=== PATIENT | male | born 2000 | race Caucasian/White ===

== ENCOUNTER 2023-07-02 17:13 | Emergency (ER) | payer OTHER, SELFPAY ==
--- NOTE | 2023-07-02 17:14 | ED.DENTAL ---
HPI - Dental/Oral General Chief complaint: Dental/Oral Stated complaint: Tooth pain Time Seen by Provider: 07/02/23 17:14 Source: patient Mode of arrival: ambulatory Limitations: no limitations History of Present Illness HPI Narrative: Patient is a 22-year-old male with right facial pain due to dental pain in the upper and lower back jaw. This has been going on for the past week. He was supposed to go to a dentist but has a new appointment coming up at the end of this month. MD Complaint: tooth pain Location: Tooth # ( Tooth 1 and 32) Onset (ago): week(s) (1) Duration: constant Severity: severe Severity scale (1-10): 8 Relieving factors: other ( drinking water) Exacerbating factors: chewing, cold and heat Context: history of dental caries and poor dental care Associated symptoms: gum swelling Treatment prior to arrival: oral analgesic Related Data Allergies Allergy/AdvReac Type Severity Reaction Status Date / Time No Known Allergies Allergy Verified 07/02/23 17:20 Review of Systems Review of Systems: All systems reviewed & are unremarkable except as noted in HPI and below Constitutional: Constitutional: Reports no additional constitutional complaints Eyes: Eyes: Reports no additional eye complaints ENT: Reports system reviewed and no additional complaints, except as documented Cardiovascular: Cardiovascular: Reports no additional cardiovascular complaints Respiratory: Respiratory: Reports no additional respiratory complaints Gastrointestinal: Gastrointestinal: Reports no additional gastrointestinal complaints Genitourinary: Genitourinary: Reports no additional male genitourinary complaints Musculoskeletal: Musculoskeletal: Reports no additional musculoskeletal complaints Integumentary/Breasts: Skin/Breast: Reports system reviewed and no additional complaints, except as docu Neurologic: Reports system reviewed and no additional complaints, except as documented Psychiatric: Psychiatric: Reports no additional psychiatric complaints Endocrine: Endocrine: Reports no additional endocrine complaints Hematologic/Lymphatic: Hematologic/Lymphatic: Reports no additional hematologic/lymphatic complaints Allergic/Immunologic: Allergic/Immunologic: Reports no additional allergic/immunologic complaints Exam Const: General: healthy appearing Nutritional Appearance: well nourished Orientation/consciousness: patient oriented x3 HENMT: Head: normal to inspection Ears: external ears normal Face/Nose/Sinus: Normal external nose present Other: tooth 1 and 32 have decay; specifically tooth 1 has the most decay and fracture; no abscesses seen; gingival hyperplasia on the number 32 Eyes: Conjunctivae: conjunctivae normal Pupils: Equal, round and reactive pupils present EOM: EOMs intact bilaterally Neck: Neck: normal visual inspection Chest: Chest palpation & inspection: normal inspection of the chest Resp: Effort & Inspection: normal respiratory effort and not labored Auscultation: clear to auscultation bilaterally and no crackles Cardio: Rate: regular rate Rhythm: regular rhythm Heart sounds: no murmurs GI: Inspection: non-distended GI Palp: Yes Soft to palpation and No Tenderness to palpation present (GI) Auscultation: normal bowel sounds : General: Yes bladder normal to palpation Back/Spine/Pelvis: Back: no CVA tenderness Skin: General skin exam: normal color Rashes: no rashes Wounds: no wounds Neuro: General: patient oriented x3 Cranial nerves: Yes Nystagmus not present Speech: normal speech Extrem: General: normal to inspection Psych: Mental Status: mental status grossly normal Affect: normal affect Attitude: cooperative Course Vital Signs Vital signs: Vital Signs Temperature 36.6 C 07/02/23 17:15 Pulse Rate 81 07/02/23 17:15 Respiratory Rate 20 07/02/23 17:15 Blood Pressure 152/86 H 07/02/23 17:15 Pulse Oximetry 97 07/02/23 17:15 Oxygen Delivery Room Air
[2023-07-02 17:15] VITALS: BP 152/86; PULSE 81; RESP 20; TEMP 36.6; O2SAT 97
[2023-07-02] MEDS: AMOXICILLIN 500 MG CAPSULE 1000 MG PO (17:33)
[2023-07-02] MEDS: KETOROLAC (*BKC) 60 MG/2 ML VIAL IM (17:34)
[2023-07-02] MEDS: traMADol HCL (*CRX) 50 MG TABLET PO (17:34)
== END 2023-07-02 17:52 | disposition home or self-care (01) ==
PROVIDERS: Emergency Provider Emergency Medicine; PCP Family Medicine
DX: R68.84 Jaw pain (principal)
CPT/HCPCS: 96372; 99283; A9270; J1885

== ENCOUNTER 2024-02-03 23:08 | Emergency (ER) | payer OTHER, SELFPAY ==
--- NOTE | ~2024-02-03 | CT_ITS ---
EXAMINATION: CT abdomen pelvis wo con DATE: 02/03/2024 23:30 INDICATION: Left lower quadrant abdominal pain. Kidney stone. TECHNIQUE: Computed tomography (CT) of the abdomen and pelvis was performed without intravenous contr ast. Automated exposure control and iterative reconstruction technique were employed. The dose-length product was 740.06 mGy-cm. COMPARISON: None. FINDINGS: The visualized portions of the lung bases are clear without pneumonia or pleural effusion. The heart size is normal. No pericardial effusion. The liver, gallbladder, spleen, pancreas, adrenal glands, and right kidney are normal. There is mild left hydronephrosis and proximal hydroureter. Ther e is a 4 mm stone in the proximal left ureter. There are no dilated loops of bowel. The appendix is n ormal. There are no pathologically enlarged lymph nodes. There is no free intraperitoneal fluid. Ther e is thoracolumbar dextrocurvature. IMPRESSION: 1. 4 mm stone in proximal left ureter with mild left hydronephrosis and proximal hydroureter. Reviewed, dictated and finalized at location E. IMPRESSION: 1. 4 mm stone in proximal left ureter with mild left hydronephrosis and proxima l hydroureter.
[2024-02-03 23:14] VITALS: BP 146/87; PULSE 81; RESP 20; TEMP 36.6; O2SAT 98
--- NOTE | 2024-02-03 23:14 | ED.GENADULT ---
HPI - General Adult General Chief complaint: Urogenital-Male Stated complaint: Testicular Problem Time Seen by Provider: 02/03/24 23:14 Source: patient and family Mode of arrival: ambulatory History of Present Illness HPI narrative: 23 years old white male came to the emergency room with his mom by private car from home complaining of sudden onset of left testicular pain left lower quadrant pain started within 1 hour prior to arrival to the emergency room associated with nausea and vomiting. Patient reported the pain wake him up from sleep patient reports possible pain at the left flank area. Pain is sharp, stabbing, steady. No aggravating or relieving factors. Related Data Home Medications Medication Instructions Recorded Confirmed No Home Medications 02/03/24 02/04/24 Allergies Allergy/AdvReac Type Severity Reaction Status Date / Time No Known Allergies Allergy Verified 02/04/24 05:05 Review of Systems Review of Systems: All systems reviewed & are unremarkable except as noted in HPI and below PMFSH Family History Family History (Updated 02/04/24 @ 05:11 by Mark Martínez RN) Grandparent Hypertension Heart disease Diabetes mellitus Social History Social History Smoking status: Never smoker Alcohol intake: never Substance use: current Substance use type: marijuana Do You Feel Safe in your Home?: Yes Lack of Transportation: No Lack of Food: Never True Current Housing: I Have Housing Concerned About Future Housing: No Difficulty Paying Gas/Electric Bills: No Difficulty Paying for Meds: No Currently Unemployed: No Education: High School Diploma/GED Difficulty w/ Childcare or Family Care: No Spiritual care concerns: No Exam Narrative: General appearance: Well-developed, well-nourished Looks in pain, restless Skin: Normal color Head: Normocephalic, nontraumatic Eyes: Clear conjunctiva ENT: Oropharynx normal, ears normal, nose normal Neck: Supple, nontender Chest and respiratory: Airway patent, no respiratory distress, no accessory muscle use Heart: Regular rate/rhythm Abdomen: Soft, slight tenderness left lower quadrant,, no organomegaly, quiet bowel sounds. Scrotal exam showed slight tenderness at the left testicle, no mass, no swelling, no skin discoloration, Vascular: Normal peripheral pulses, normal capillary refill. Musculoskeletal: Normal range of motion, nontender back Neurologic: Alert and oriented ?3, [employer] is normal as tested, no gross motor deficit Course Consultations Consultation #1: dr lester, urologist at [facility] who accepted patient transfer Date: 02/04/24 Time: 03:02 Consultation #2: dr joseph, hospitalist at [facility] who accepted patient transfer Date: 02/04/24 Time: 03:03 Vital Signs Vital signs: Vital Signs Temperature 36.6 C 02/03/24 23:14 Pulse Rate 81 02/03/24 23:14 Respiratory Rate 20 02/03/24 23:14 Blood Pressure 146/87 H 02/03/24 23:14 Pulse Oximetry 98 02/03/24 23:14 Oxygen Delivery Room Air 02/03/24 23:14 Temperature 36.6 C 02/04/24 04:11 Pulse Rate 75 02/04/24 04:11 Respiratory Rate 18 02/04/24 04:11 Blood Pressure 122/72 02/04/24 04:11 Pulse Oximetry 98 02/04/24 04:11 Oxygen Delivery Room Air 02/04/24 04:11 Medical Decision Making Vital Signs Vital Signs: Vital Signs Temperature 36.6 C 02/03/24 23:14 Pulse Rate 81 02/03/24 23:14 Respiratory Rate 20 02/03/24 23:14 Blood Pressure 146/87 H 02/03/24 23:14 Pulse Oximetry 98 02/03/24 23:14 Oxygen Delivery Room Air 02/03/24 23:14 Temperatu
[2024-02-03 23:22] LABS: Basophils Absolute Auto 0.06 K/mm3 (0.00-0.10); Basophils Percent Auto 0.8 % (0.0-1.0); Eosinophils Percent Auto 1.3 % (1.0-6.0); Hematocrit 44.3 % (40.0-54.0); Hemoglobin 15.7 g/dL (14.0-18.0); Immature Granulocyte Absolute 0.02 K/mm3 (0.00-0.00); Immature Granulocyte Percent A 0.3 % (0.0-0.0); Lymphocytes Absolute Auto 2.37 K/mm3 (1.10-4.50); Lymphocytes Percent Auto 30.5 % (18.0-42.0); Mean Corpuscular HGB Conc 35.4 g/dL (32-36); Mean Corpuscular Hemoglobin 29.2 pg (27.0-31.0); Mean Corpuscular Volume 82.3 fL (78.0-102.0); Mean Platelet Volume 9.6 fl (8.7-11.0); Monocytes Absolute Auto 0.68 K/mm3 (0.10-0.90); Monocytes Percent Auto 8.7 % (2.0-11.0); Neutrophils Absolute Auto 4.55 K/mm3 (1.70-7.20); Neutrophils Percent Auto 58.4 % (50.0-70.0); Platelet Count Result 254 K/mm3 (150-420); Red Blood Count 5.38 M/mm3 (4.70-6.10); Red Cell Distribution Width 11.9 % (11.6-14.4); White Blood Count 7.8 K/mm3 (4.8-10.8)
[2024-02-03] MEDS: SODIUM CHLORIDE 0.9% IV 1,000 ML 999 ML IV CONT (23:30)
[2024-02-03] MEDS: ONDANSETRON INJ 4 MG/2 ML VIAL IV PUSH (23:30)
[2024-02-03] MEDS: MORPHINE SULFATE (*CRX) 4 MG/ML INJ IV PUSH (23:30)
[2024-02-03] MEDS: TAMSULOSIN HCL 0.4 MG CAPSULE PO (23:32)
[2024-02-03 23:40] LABS: Alanine Aminotransferase 43 U/L (16-63); Albumin Level 3.9 g/dL (3.4-5.0); Alkaline Phosphatase 116 U/L (46-116); Anion Gap 9 mmol/L (4-12); Aspartate Amino Transferase 20 U/L (15-37); Bilirubin,Total 0.3 mg/dL (0.00-1.00); Blood Urea Nitrogen 11 mg/dL (7-18); Calcium 8.6 mg/dL (8.5-10.1); Carbon Dioxide 29 mmol/L (21-32); Chloride 103 mmol/L (98-108); Estimated CRCL calculation 101 ml/min; Estimated Glomerular Filt Rate > 60; Glucose 94 mg/dL (70-99); Lipase 40 U/L (16-77); Osmolality Calculated 291 mOsm/kg (285-295); Potassium 3.7 mmol/L (3.5-5.1); Sodium 141 mmol/L (136-145); Total Protein 7.1 g/dL (6.4-8.2)
[2024-02-03] MEDS: KETOROLAC 30 MG/ML VIAL (*BKC) IV PUSH (23:52)
[2024-02-04 00:15] VITALS: BP 133/79; PULSE 86; RESP 18; O2SAT 98
[2024-02-04] MEDS: SODIUM CHLORIDE 0.9% IV 1,000 ML 999 ML IV CONT (01:28)
[2024-02-04 02:17] LABS: Add Urine Microscopic? YES; Appearance Urine Clear (Clear); Bilirubin Urine Negative (Negative); Blood Urine 3+ (Negative); Color Urine Light Yellow (Yellow); Glucose Urine UA Negative (Negative); Ketones Urine Trace (Negative); Leukocyte Esterase Ur Negative LEU/UL (Negative); Nitrate Urine Negative (Negative); Protein Urine Negative (Negative); Specific Grav Ur 1.015 (1.010-1.020); Urobilinogen Urine 0.2 mg/dL (0.2-1.0)
[2024-02-04 02:24] LABS: Bacteria Urine 1+ /hpf; RBC Urine >75 /hpf (0-2)
--- NOTE | 2024-02-04 02:33 | PC.NURSE ---
POC discussed w/ pt and he is still having pain. Pt wants to go to urology at [facility].
--- NOTE | 2024-02-04 02:40 | PC.NURSE ---
No beds availabe at [facility], pt wants to go to [facility].
[2024-02-04 03:15] VITALS: BP 120/66; PULSE 77; RESP 18; O2SAT 97
[2024-02-04 04:11] VITALS: BP 122/72; PULSE 75; RESP 18; TEMP 36.6; O2SAT 98
== END 2024-02-04 04:11 | disposition short-term general hospital (02) ==
PROVIDERS: Emergency Provider Emergency Medicine; PCP Family Medicine
DX: N20.0 Calculus of kidney (principal)
CPT/HCPCS: 36415; 74176; 80053; 81001; 83690; 85025; 96361; 96374; 96375; 99285; A9270; J1885; J2270; J2405; J7030

== ENCOUNTER 2024-02-04 05:32 | Observation (INO) | payer OTHER, SELFPAY ==
[2024-02-04] VITALS (10 sets, daily range): BP systolic 125–146; BP diastolic 65–92; PULSE 69–86; RESP 13–20; TEMP 36.2–36.7; O2SAT 95–100; BMI 33.7
--- NOTE | ~2024-02-04 | XR_ITS ---
EXAMINATION: XR retrograde pyelo w/stent LT DATE: 02/04/2024 08:58 INDICATION: Left ureteral stone. TECHNIQUE: 10 intraoperative fluoroscopic views of the abdomen and pelvis were obtained. I was not pr esent. Fluoroscopy exposure time was 28 seconds. COMPARISON: CT abdomen and pelvis 02/03/2024 FINDINGS: The left-sided retrograde pyelogram is unremarkable. The final images demonstrate a left in ternal ureteral stent in expected position. IMPRESSION: 1. Left internal ureteral stent in expected position. Reviewed, dictated and finalized at location E.
--- NOTE | 2024-02-04 04:45 | ADMGEN ---
This patient, John Jessica, was admitted to Medical Room 258-. Patient/family oriented to hospital policies and general routines including ID bracelet, bed and alarms, visiting hours, pain management, procedures, bathroom and other care routines, personal items, smoking policy, room service/diet, and visiting hours. Information on how to activate the Rapid Response Team has been discussed. Patient/Family are encouraged to report perceived risks to care and to ask questions if they do not understand what they are told or what they should do.
[2024-02-04] MEDS: DEXTROSE 5%/LACTATED RINGERS 1,000 ML 100 ML IV CONT (06:30)
[2024-02-04 06:37] LABS: Anion Gap 9 mmol/L (4-12); Blood Urea Nitrogen 10 mg/dL (9-20); Calcium 7.9 mg/dL (8.4-10.2); Carbon Dioxide 25 mmol/L (22-30); Chloride 104 mmol/L (98-107); Estimated CRCL calculation 123 ml/min; Estimated Glomerular Filt Rate > 60; Glucose 101 mg/dL (65-110); Potassium 3.9 mmol/L (3.4-5.0); Sodium 138 mmol/L (137-145)
--- NOTE | 2024-02-04 07:35 | PM.IMHP ---
H&P: HPI History of Present Illness Date/Time: 02/04/24 07:35 Chief Complaint: testicular pain Narrative: This is a healthy 23-year-old male with no significant past medical history who presents as a transfer from [facility] emergency room with complaints of sudden onset of left testicular pain. He was transferred [facility] for urological consult. In the ER labs were fairly unremarkable. CT of abdomen and pelvis shows a 4 mm stone in the proximal left ureter with mild left hydro nephrosis and proximal hydroureter. His vital signs are stable. He is afebrile. [facility] Family History Family History (Updated 02/04/24 @ 05:11 by Mark Martínez RN) Grandparent Hypertension Heart disease Diabetes mellitus Social History Social History Smoking status: Never smoker Alcohol intake: never Substance use: current Substance use type: marijuana Do You Feel Safe in your Home?: Yes Lack of Transportation: No Lack of Food: Never True Current Housing: I Have Housing Concerned About Future Housing: No Difficulty Paying Gas/Electric Bills: No Difficulty Paying for Meds: No Currently Unemployed: No Education: High School Diploma/GED Difficulty w/ Childcare or Family Care: No Spiritual care concerns: No Meds Home Medications and Allergies Home Medications Medication Instructions Recorded Confirmed Type No Home Medications 02/03/24 02/04/24 History Allergies Allergy/AdvReac Type Severity Reaction Status Date / Time No Known Allergies Allergy Verified 02/04/24 05:05 Vital Signs Vital Signs - 24 hr 02/04/24 05:01 02/04/24 05:23 02/04/24 05:37 Temperature 97.4 F L 97.4 F L Pulse Rate 82 82 82 Respiratory Rate 18 18 18 Blood Pressure 127/81 127/81 Pulse Oximetry 98 98 98 Oxygen Delivery Room Air Room Air Exam Narrative: General: well appearing, appears stated age. HEENT: normocephalic, atraumatic. Mucous membranes moist. EOMI, PERRLA, bilateral sclera anicteric, no conjunctival injection. Neck supple without JVD, lymphadenopathy, or bruit. Respiratory: clear to ascultation bilaterally. No rales/rhonic/wheezes. Cardiovascular: Regular rate and rhythm, normal S1-S2 upon ascultation. No murmurs, rubs, or clicks. PMI is nondisplaced, capillary refill less than 3 second. Abdomen: Soft, round, no pulsatile masses, nondistended and nontender. No rebound, no guarding. No CVA tenderness, no hepatosplenomegaly. Bowel sounds present to all four quadrants. No high pitch or tinkling sounds, resonant to percussion. Extremities: No cyanosis, clubbing, or edema present. Pulses are palpable 2/2. Active ROM to all four extremities. Neuro: Alert and orientated x 4. PERRLA. Cranial nerves 2-12 intact without focal deficit. Skin: Warm, dry, and intact, without rash, erythema, or lesion. Lines: Incisions: Psych: pleasant, cooperative, normal speech, normal affect, no hallucinations, no dysarthia H&P: Results Labs Labs: [facility] 02/04/24 06:17 Sodium 138 Potassium 3.9 Chloride 104 Carbon Dioxide 25 BUN 10 Creatinine 0.90 Glucose 101 Calcium 7.9 L Assessment and Plan Assessment and plan (1) Kidney stone on left side: Code(s): N20.0 - Calculus of kidney Status: Acute
--- NOTE | 2024-02-04 08:28 | PC.NURSE ---
Patient to surgery per primary RN @[id number]
--- NOTE | 2024-02-04 08:28 | WPDURCON ---
Assessment and Plan Assessment and plan (1) Kidney stone on left side: Code(s): N20.0 - Calculus of kidney Status: Acute Plan 4 mm proximal ureteral stone patient's continued to have pain requiring IV pain medications overnight requiring transfer for further management, no obvious evidence of infection. Discussed with patient and his mom options including observation with trial passage versus intervention. We discussed an urgent setting generally would recommend stent placement with definitive stone and a future date. He would like to proceed with stent placement to try and alleviate pain. We will proceed operating room for cystoscopy, left retrograde pyelogram placement of left ureteral stent this morning. Pending overall condition he likely will able to discharge home later today, discussed with him stent is not permanent he will need follow-up with our group here at [facility] in the near future to eradicate stone. Urology Consult Note HPI Date Seen: 02/04/24 Requesting Physician: Angela Hanson APRN Primary Care Provider: Jorge Flores MD Consult Narrative Narrative: John Jessica is a 23 year old male admitted to [facility] overnight as a transfer after he presented to an outside emergency department with sudden onset left flank pain, nausea and vomiting, he was found to have a 6 mm proximal ureteral stone with hydronephrosis on the left side. He had no obvious evidence infection was without fevers, no chills, creatinine is 0.90 overnight he continued to require IV pain medications. At present he is relatively pain-free, but again required multiple doses of pain medications. Review of Systems Review of Systems: All systems reviewed & are unremarkable except as noted in HPI and below PMFSH Family History Family History Grandparent Hypertension Heart disease Diabetes mellitus Social History Social History Smoking status: Never smoker Alcohol intake: never Substance use: current Substance use type: marijuana Do You Feel Safe in your Home?: Yes Lack of Transportation: No Lack of Food: Never True Current Housing: I Have Housing Concerned About Future Housing: No Difficulty Paying Gas/Electric Bills: No Difficulty Paying for Meds: No Currently Unemployed: No Education: High School Diploma/GED Difficulty w/ Childcare or Family Care: No Spiritual care concerns: No Meds Home Medications and Allergies Home Medications Medication Instructions Recorded Confirmed Type No Home Medications 02/03/24 02/04/24 History Allergies Allergy/AdvReac Type Severity Reaction Status Date / Time No Known Allergies Allergy Verified 02/04/24 05:05 Vital Signs Vital Signs - 24 hr 02/04/24 05:01 02/04/24 05:23 02/04/24 05:37 Temperature 36.3 C L 36.3 C L Pulse Rate 82 82 82 Respiratory Rate 18 18 18 Blood Pressure 127/81 127/81 Pulse Oximetry 98 98 98 Oxygen Delivery Room Air Room Air Exam Narrative: Sitting in chair no apparent distress Const: General: comfortable and no acute distress Eyes: General: appearance normal, both eyes and all related structures Resp: Effort & Inspection: normal respiratory effort Cardio: Rate: regular rate GI: Inspection: non-distended GI Palp: Yes Soft to palpation and No Tenderness to palpation present (GI) Other: Mild left CVA tenderness : Male General Exam: Yes normal external exam Extrem: General: normal to inspection Psych: Speech and movement: Normal speech and movement present Results Labs 02/04/24 06:17 Labs: BMP 02/04/24 06:17 Sodium 138 Potassium 3.9 Chloride 104 Carbon Dioxide 25 BUN 10 Creatinine 0.90 Glucose 101 Calcium 7.9 L Imaging Radiologist's impression: CT abdomen pelvis 02/03/2024 FINDINGS:
[2024-02-04] MEDS: LACTATED RINGERS 1,000 ML 30 ML IV CONT (08:30)
--- NOTE | 2024-02-04 08:33 | P.PNAN_ITS ---
Anes - Initial Pre Proc Eval Procedure: Operation Date: 02/04/24 08:30 Proposed Procedures p Cysto, RPG, Stone Ext, Stent Placement(Left) - Jass Ellington MD Date/Time: 02/04/24 08:33 Surgeon: Angela Hanson APRN Pre Op Diagnosis: ureterer stone Patient Data Age: 23 Gender: M Height: 1.68 m Weight: 94.8 kg Last Vital Signs Temp 36.3 C L 02/04/24 05:37 Pulse 82 02/04/24 05:37 Resp 18 02/04/24 05:37 BP 127/81 02/04/24 05:37 Pulse Ox 98 02/04/24 05:37 O2 Del Method Room Air 02/04/24 05:37 Allergies Allergy/AdvReac Type Severity Reaction Status Date / Time No Known Allergies Allergy Verified 02/04/24 05:05 Home Medications Medication Instructions Recorded Confirmed Type No Home Medications 02/03/24 02/04/24 History Laboratory Tests 02/04/24 06:17 Sodium 138 mmol/L (137-145) Potassium 3.9 mmol/L (3.4-5.0) Chloride 104 mmol/L (98-107) Carbon Dioxide 25 mmol/L (22-30) Anion Gap 9 mmol/L (4-12) BUN 10 mg/dL (9-20) Creatinine 0.90 mg/dL (0.7-1.3) Estim Creat Clear Calc 123 ml/min Estimated GFR > 60 (59 - ) Glucose 101 mg/dL (65-110) Calcium 7.9 L mg/dL (8.4-10.2) Patient hx anesthesia problems: none Family hx anesthesia problems: none Results Review: All pre-operative results and documents have been reviewed as part of the pre- operative evaluation. [facility] Family History Family History Grandparent Hypertension Heart disease Diabetes mellitus Social History Social History Smoking status: Never smoker Alcohol intake: never Substance use: current Substance use type: marijuana Do You Feel Safe in your Home?: Yes Lack of Transportation: No Lack of Food: Never True Current Housing: I Have Housing Concerned About Future Housing: No Difficulty Paying Gas/Electric Bills: No Difficulty Paying for Meds: No Currently Unemployed: No Education: High School Diploma/GED Difficulty w/ Childcare or Family Care: No Spiritual care concerns: No Anes - Eval Final PreProcedure Day of Procedure 02/04/24 08:33 Patient weight: obese Heart: regular rate and rhythm Lungs: clear to auscultation Airway: Mallampati scale class II Neurological: alert and oriented Last oral intake: >/= 8 hours ASA classification: II Emergent: no Anesthetic plan: proceed Anesthesia type and monitoring: general LMA and standard monitoring Results Review: All pre-operative results and documents have been reviewed as part of the pre- operative evaluation. Informed Consent: The patient's anesthetic plan and its attendant risks and benefits were discussed with the patient/family/POA. Questions were solicited and answers provided to the satisfaction of the patient/family/POA.
--- NOTE | 2024-02-04 08:42 | SUR.PREOP ---
0835 PATIENT TRANSPORTED TO OR VIA STRETCHER.
[2024-02-04] MEDS: ceFAZolin SODIUM 1 GM VIAL 2 GM IV PUSH (08:47)
--- NOTE | 2024-02-04 08:57 | P.OP_ITS ---
Procedure Note - Detailed Date of Procedure 02/04/24 Pre-op Diagnosis ureterer stone Post-op Diagnosis Same Procedure Performed Cystoscopy, left retrograde pyelogram, left ureteral stent placement Surgeon Jass Ellington MD Anesthesia General Indications 23-year-old man with a 5 mm proximal ureteral stone with pain refractory to IV pain medication Findings filling defect in proximal ureter consistent with stone, mild proximal hydronephrosis, no abnormalities visualized within the bladder. Description of Procedure After obtaining informed consent we proceeded operating room. The patient was placed in supine position. SCD boots were placed. General anesthesia was induced. He was given dose of antibiotics. He was placed in lithotomy position prepped draped usual sterile manner. We began by passing a well lubricated 22 Icelandic cystoscope per the urethra. There were no abnormalities along the course urethra. We entered the bladder. The bladder is emptied of all urine. Follow Endoscopic evaluation of the bladder was carried out, there were no mucosal or other concerning findings within the bladder. we focused on the left ureteral orifice. After obtaining endodontist images this was cannulated with a 5 Icelandic catheter. Gentle retrograde pyelogram performed. Demonstrated no obvious filling defect with exception of filling defect proximal ureter consistent with patient's known stone with proximal dilation. A Sensor wire was fed up the ureter past the stone into an upper pole calyx. Next a 6 Icelandic variable length stent was fed over the wire with good curl in an upper pole calyx during the course of the ureter and good curl bladder. Once this was done bladder is emptied of all urine. Completion x-rays confirm stent remained in good position and this concluded the procedure which the patient tolerated without apparent complication. Assuming patient is feeling well likely can discharge home later in the day. Will need outpatient follow-up for definitive stone management. We will coordinate that with our team here at [facility]. Implants Six Icelandic variable length double-J stent Complications No immediate complications Condition Stable
[2024-02-04] MEDS: KETOROLAC 15 MG/ML VIAL (*BKC) IV PUSH (10:35)
[2024-02-04] MEDS: TAMSULOSIN HCL 0.4 MG CAPSULE PO (10:35)
--- NOTE | 2024-02-04 16:00 | PM.SD2 ---
Same Day Admit/Disch: HPI History of Present Illness Chief complaint: ureterer stone Narrative: John Jessica is a 23 year old male with no past medical history who presented to [facility] emergency room with complaints of left testicular pain radiating to his left flank. CT of his abdomen and pelvis showed 4 mm stone in the proximal left ureter with mild left hydronephrosis. He was transferred to [facility] for urological consult. Dr. Ellington took him for cystoscopy with stent placement. Postoperatively he did well and tolerated a diet without nausea or vomiting. His pain was controlled with Toradol. His labs were unremarkable. Vital signs were stable he was afebrile. He was discharged home stable condition with pain medication, Flomax, and urological follow-up in 1 week for stent removal and further stone intervention. [facility] Family History Family History Grandparent Hypertension Heart disease Diabetes mellitus Social History Social History Smoking status: Never smoker Alcohol intake: never Substance use: current Substance use type: marijuana Do You Feel Safe in your Home?: Yes Lack of Transportation: No Lack of Food: Never True Current Housing: I Have Housing Concerned About Future Housing: No Difficulty Paying Gas/Electric Bills: No Difficulty Paying for Meds: No Currently Unemployed: No Education: High School Diploma/GED Difficulty w/ Childcare or Family Care: No Spiritual care concerns: No Same Day Admit/Disch: Med Pre-admit Medications Home Medications Medication Instructions Recorded Confirmed Type ketorolac 10 mg tablet 10 mg PO Q8H PRN pain #15 tabs 02/04/24 Rx ondansetron 4 mg disintegrating 4 mg PO Q8H PRN nausea and 02/04/24 Rx tablet vomiting #10 tabs tamsulosin 0.4 mg capsule (Flomax) 0.4 mg PO DAILY #5 caps 02/04/24 Rx Review of Systems Review of Systems All systems reviewed & are unremarkable except as noted in HPI and below Exam Narrative: General: well appearing, appears stated age. HEENT: normocephalic, atraumatic. Mucous membranes moist. EOMI, PERRLA, bilateral sclera anicteric, no conjunctival injection. Neck supple without JVD, lymphadenopathy, or bruit. Respiratory: clear to auscultation bilaterally. No rales/rhonic/wheezes. Cardiovascular: Regular rate and rhythm, normal S1-S2 upon auscultation. No murmurs, rubs, or clicks. PMI is nondisplaced, capillary refill less than 3 second. Abdomen: Soft, round, no pulsatile masses, nondistended and nontender. No rebound, no guarding. No CVA tenderness, no hepatosplenomegaly. Bowel sounds present to all four quadrants. No high pitch or tinkling sounds, resonant to percussion. Extremities: No cyanosis, clubbing, or edema present. Pulses are palpable 2/2. Active ROM to all four extremities. Neuro: Alert and orientated x 4. PERRLA. Cranial nerves 2-12 intact without focal deficit. Skin: Warm, dry, and intact, without rash, erythema, or lesion. Lines: Incisions: Psych: pleasant, cooperative, normal speech, normal affect, no hallucinations, no dysarthria DS: Data Data Completed and Pending Labs on day of discharge: Labs from last 24 hours 02/04/24 06:17 Sodium 138 Potassium 3.9 Chloride 104 Carbon Dioxide 25 Anion Gap 9 BUN 10 Creatinine 0.90 Estim Creat Clear Calc 123 Estimated GFR > 60 Glucose 101 Calcium 7.9 L DS: Summary Hospital Course Reason for hospitalization: Kidney stone Hospital Course: John Jessica is a 23 year old male with no past medical history who presented to [facility] emergency room with complaints of left testicular pain radiating to his left flank. CT of his abdomen and pelvis showed 4 mm stone in the proximal left ureter with mild left hydronephrosis. He was transferred to [facility] for urological consult. Dr. Coleman
== END 2024-02-04 14:40 | disposition home or self-care (01) ==
PROVIDERS: Urology; Admitting Provider Internal Medicine; PCP Family Medicine; Visit Provider Nurse Practitioner Acute Care
PROC: (CPT 52352; principal; 2024-02-04 08:30)
DX: N13.2 Hydronephrosis with renal and ureteral calculous obstruction (principal)
CPT/HCPCS: 52332; 36415; 74420; 80048; A9270; C1758; C1769; C2617; G0378; G0379; J0330; J0690; J1100; J1885; J2250; J2405; J2704; J3010; J7120; J7121; Q9966